=== PATIENT | female | born 1955 | race Caucasian/White ===

== ENCOUNTER 2017-08-20 09:50 | Emergency (ER) | payer OTHER ==
--- NOTE | 2017-08-20 10:14 | ERNOTE ---
Chest Pain/Cardiac HPI Chief Complaint: Palpitations Time Seen by Provider: 08/20/17 09:58 Source: patient, family Exam Limitations: no limitations Immunizations: IMMUNIZATION HX Immunizations Up to Date No History of Influenza Vaccine No Hx Pneumococcal Vaccination No Allergies/Adverse Reactions: Allergies No Known Allergies Allergy (Unverified 08/20/17 10:07) Home Medications: HOME MEDICATIONS LORazepam [Ativan] 0.5 mg PO BID PRN #7 tablet 08/20/17 [Last Taken Unknown] Progesterone, Micronized [Prometrium] 200 mg 08/20/17 [Last Taken Unknown] Thyroid,Pork [Nature-Throid] 32.5 mg PO DAILY 08/20/17 [Last Taken 08/20/17] Narrative: Patient had a brief episode this morning where she felt like her heart was racing, she stated it lasted for approximate 5 minutes and had been over for nearly an hour by the time she got to the emergency department. She did have one episode of vomiting in the night and complains of only mild epigastric abdominal pain. Timing: gone now Severity/Quality: moderate Location: epigastric Chest Pain Radiation: no radiation Activities at Onset: none Modifying Factors - Improves: Present: antacids - patient states she took Rolaids in the night and that seemed to calm her stomach down Modifying Factors - Worsens: Present: nothing Nitro Today/Relief: no nitro taken today Aspirin Treatment Today: no aspirin today Associated Symptoms: Present: nausea, vomiting Prior Chest Pain/Cardiac Workup: Reports: no prior cardiac workup Review of Systems - Review of Systems Constitutional: Present: See HPI EYE: Present: no symptoms reported ENT: Present: no symptoms reported Respiratory: Present: no symptoms reported Cardiology: Present: palpitations Gastrointestinal/Abdominal: Present: nausea, vomiting, abdominal pain - mild epigastric Genitourinary: Present: no symptoms reported Musculoskeletal: Present: no symptoms reported Skin: Present: no symptoms reported Neurological: Present: no symptoms reported Endocrine: Present: no symptoms reported Hematologic/Lymphatic: Present: no symptoms reported Psych: Present: no symptoms reported - Patient's Past Medical History Patient History - Medical: No pertinent hx Patient History - Cardiac/Respiratory: No pertinent hx Patient History - Other: None - Family History Mother Family History - Medical: Father Family History - Medical: - Social History Living Situations: alone Psych History: No pertinent hx Smoking Status: Never smoker Have you smoked in the past 12 months: No Do you dip or chew tobacco: No Alcohol Use: rarely Drug Use: none - Immunizations Immunizations Up to Date: No Hx Pneumococcal Vaccination: No History of Influenza Vaccine: No Physical Exam - Physical Exam General Appearance: Present: wd/wn, alert, mild distress Head Exam: Present: normal inspection, no evidence of injury Eye Exam: Normal inspection: bilateral, PERRL: bilateral Ears, Nose, Throat: Present: normal ENT inspection, H, normal pharynx Neck: Present: normal inspection, nontender Respiratory: Present: no respiratory distress, normal breath sounds, no accessory muscle use, chest nontender, lungs clear Cardiovascular/Chest: Present: regular rate, rhythm, no murmur, normal peripheral pulses Gastrointestinal/Abdominal: Present: normal bowel sounds, nondistended, soft, no organomegaly, tenderness - mild epigastric Rectal Exam: Present: deferred Pelvic Exam: Present: deferred Back Exam: Present: normal inspection, normal range of motion Extremity Exam: Present: normal inspection, non-tender, no edema, normal range of motion Neurological Exam: Present: alert, oriented, normal mood/affect Skin Exam: Present: normal color, warm/dry Lymphatic Exam: Present: no adenopathy ED Progress - Results and Orders Patient's Lab Results:: I have reviewed the patient's lab results. - Vital Signs Patient's Vital Signs:: I have reviewed the patient's vital signs. Vital Signs: Vital Signs 08/20/17 09:59 Temperature 35.9 C L Pulse Rate 92 Respiratory 16 Rate Blood Pressure 144/102 O2 Sat by Pulse 95 Oximetry - EKG EKG: NSR EKG read: Reviewed by me - X-Ray X-Ray #1 X-Ray: chest Interpretation: Reviewed by me - Progress/Reassessment Chief Complaint: Palpitations Plan - Plan Plan: Patient states that she feels back to her baseline, and she states this is what happened once before when she had an anxiety reaction. Patient will be started on low-dose Ativan for several days and she will follow-up with her family physician as needed. Departure Clinical Impression: Anxiety reaction - Departure Disposition: Home self-care Condition: Good Instructions: Panic Attacks, [id number], Palpitations, [id number] Prescriptions: LORazepam [Ativan] 0.5 mg PO BID PRN #7 tablet PRN Reason: Anxiety
[2017-08-20 10:43] LABS: ALT 21 U/L (19-67); AST 16 U/L (0-48); Albumin * 3.2 gm/dl (3.4-5.0); Alkaline Phosphatase * 80 U/L (50-170); Anion Gap 9.8 mmol/L (6.8-13.8); BUN/Creatinine Ratio 16.5 (9.0-21.6); Bilirubin, Total 0.4 mg/dL (0.0-1.1); Blood Urea Nitrogen 15 mg/dL (3-23); Ca. Corrected For Albumin 8.4 mg/dL (8.4-10.2); Calcium * 8.1 mg/dL (7.9-10.9); Carbon Dioxide 28.4 mmol/L (24-32.6); Chloride 106 mmol/L (97-106); Glucose * 117 mg/dL (70-110); Magnesium 1.9 mg/dL (1.2-2.8); Potassium 4.2 mmol/L (3.4-4.6); Sodium 140 mmol/L (132-142); Troponin I Less than 0.017 ng/ml (0.00-0.10)
[2017-08-20 10:50] LABS: Hematocrit 41.1 % (37.0-47.0); Hemoglobin 13.8 gm/dL (12.5-16.0); Mean Cell Volume 87.6 fl (78-100); Mean Corpuscular Hemoglobin 29.4 pg (27-31); Mean Corpuscular Hgb Conc 33.6 g/dl (32-36); Mean Platelet Volume 10.7 fl (6.0-9.5); Neutrophil % 72.3 % (42-75.0); Platelet Count 210 K/mm3 (150-450); Red Blood Count 4.69 M/mm3 (4.2-5.4); Red Cell Distribution Width 13.5 % (11.5-14.0); White Blood Count 5.5 K/mm3 (4.0-10.5)
[2017-08-20 11:52] VITALS: BP 152/81
== END 2017-08-20 11:23 | disposition home or self-care (01) ==
LOC: ER 09:50
DX: F41.1 Generalized anxiety disorder (principal)